=== PATIENT | female | born 1990 | race Caucasian/White ===

== ENCOUNTER 2016-11-29 22:08 | Emergency (ER) | payer BC ==
[~2016-11-29] VITALS: Ht 172.7 cm; Wt 75.0 kg
[2016-11-29] MEDS ORDERED: ULTRAM50 MG PO (23:42)
[2016-11-29] MEDS ORDERED: NAPROSYN500 MG PO (23:42)
[2016-11-29] MEDS ORDERED: FLEXERIL10 MG PO (23:42)
[2016-11-30 00:12] VITALS: BP 137/93
== END 2016-11-30 00:14 | disposition home or self-care (01) ==
LOC: EME 22:08
DX: S70.02XA Contusion of left hip, initial encounter (principal); S50.02XA Contusion of left elbow, initial encounter; S20.412A Abrasion of left back wall of thorax, initial encounter; W17.89XA Other fall from one level to another, initial encounter; Y93.55 Activity, bike riding
CPT/HCPCS: 73080; 73502; 99281; 99284; J1885